=== PATIENT | female | born 1970 | race Caucasian/White ===

== ENCOUNTER 2017-03-24 12:34 | Outpatient (CLI) | payer OTHER | END 2017-03-24 15:00 | disposition home or self-care (01) | LOC: SONOGRAMA 12:34 | DX: R10.84 Generalized abdominal pain (principal) ==

== ENCOUNTER 2017-04-15 13:17 | Outpatient (CLI) | payer OTHER | END 2017-04-15 13:19 | disposition home or self-care (01) | LOC: NUCLEAR 13:17 | DX: K81.9 Cholecystitis, unspecified (principal) | CPT/HCPCS: 78227; A9537; J2805 ==

== ENCOUNTER 2018-10-24 19:15 | Emergency (ER) | payer OTHER ==
[~2018-10-24] VITALS: Ht 162.6 cm; Wt 122.5 kg
[2018-10-24] MEDS ORDERED: CHLORTHALIDONE25 MG (19:46)
[2018-10-24] MEDS ORDERED: SYNTHROID150 MCG (19:46)
== END 2018-10-24 22:45 | disposition home or self-care (01) ==
LOC: ER 19:15
DX: K29.60 Other gastritis without bleeding (principal); R10.84 Generalized abdominal pain